=== PATIENT | female | born 2000 | race Two or more races ===

== ENCOUNTER 2025-08-05 15:15 | Emergency (ER) | payer OTHER ==
[~2025-08-05] VITALS: Ht 167.6 cm; Wt 49.9 kg
[2025-08-05] MEDS ORDERED: KETOROLAC TROMETHAMINE 30 MG VIAL IU ONE (17:00)
[2025-08-05] MEDS ORDERED: FAMOtidine 10 MG/ML (4ML VIAL) IV PUSH ONE (17:00)
[2025-08-05] MEDS ORDERED: ONDANSETRON HCL 4 MG in 0.9 % SODIUM CHLORIDE 50 ML IV ONE (17:00)
[2025-08-05] MEDS ORDERED: 0.9 % SODIUM CHLORIDE 1,000 ML IV SCH (17:00)
[2025-08-05 19:57] LABS: BASO % 0.5 % (0.1-1.2); EOS # 0.09 (0.04-0.54); EOS % 1.0 % (0.7-7.0); LYMPH # 2.02 (1.18-3.74); LYMPH % 23.3 % (19.3-53.1); MEAN PLATELET VOLUME 9.40 fl (9.4-12.4); MONO # 0.40 (0.24-0.82); MONO % 4.6 % (4.7-12.5); NEUT # 6.10 (1.56-6.13); NEUT % 70.3 % (34.0-71.1); RED CELL DISTRIBUTION WIDTH 12.1 % (11.6-14.4)
[2025-08-05 20:17] LABS: INR 0.99
[2025-08-05 20:27] LABS: ALT/SGPT 25 U/L (12-78); AST/SGOT 18 U/L (15-37); BILIRUBIN TOTAL 0.55 mg/dL (0.3-1.2); BUN CREA RATIO 23 (7.0-25.0); CREATININE SERUM 0.77 mg/dL (0.55-1.02); GFR 91.34; GLOBULINA 3.9 G/DL (2.4-3.5); GLUCOSE FASTING 85 mg/dL (65-100); HCG QUANTITATIVE < 1 mUI/mL (1-3); OSMOLALITY SERUM 282 MOSM/KG (275-295)
[2025-08-05] MEDS ORDERED: PROTONIX40 MG PO (22:40)
[2025-08-05] MEDS ORDERED: PEPCID AC20 MG PO (22:40)
[2025-08-05] MEDS ORDERED: DICY20TA PO (22:40)
[2025-08-05] MEDS ORDERED: CARAFATE1 GM PO (22:40)
[2025-08-05 23:27] LABS: URINE APPEARANCE Clear; URINE BILIRRUBIN Negative (NEGATIVE); URINE BLOOD Negative; URINE COLOR Yellow; URINE GLUCOSE Negative (NEGATIVE); URINE KETONE Negative (NEGATIVE); URINE LEUKOCYTE Negative; URINE NITRATE Negative; URINE PROTEIN Trace (NEGATIVE); URINE UROBILINOGEN 0.2 E.U./dl
[2025-08-05 23:31] LABS: URINE BACTERIA 350.3 uL (0.0-1933); URINE CAST 1.75 uL (0.0-1.40); URINE EPITHELIAL CELLS 25.5 uL (0.0-38.8); URINE RBC 3.9 uL (0.0-20.8); URINE WBC 9.0 uL (0.0-23.2)
== END 2025-08-05 23:08 | disposition home or self-care (01) ==
LOC: ER 15:16
PROVIDERS: General Practice
DX: K29.60 Other gastritis without bleeding (principal)